=== PATIENT | male | born 1935 | race Caucasian/White ===

== ENCOUNTER → 2019-08-11 | Outpatient (CLI) | payer OTHER ==
[~2019-08-11] VITALS: Ht 180.3 cm; Wt 83.9 kg
[~2019-08-11] MED LIST: ADULT LOW DOSE81 MG PO; AMLODIPINE BESY10 MG PO; AMLODIPINE PO; AUGMENTIN 875875 MG PO; CARVEDILOL25 MG PO; FAMOTIDINE OR; HCTZ PO; HYDRALAZINE 5050 MG PO; HYDROCHLOROTH12.5 MG PO; HYDROCODON-ACE1 EAC7 PO; LASIX 40 MG TAB40 MG PO; LISINOPRIL20 MG PO; PEPCID20 MG PO; PHENERGAN 25 MG25 MG PO; REGLAN 10 MG TA10 MG PO; TIMOLOL MALEATE5 ML OPHTHALMIC; TRAVATAN 0.004%5 ML GTT; TRAVATAN Z2.5 ML OPHTHALMIC; VICODIN; ZOCOR20 MG PO
--- NOTE | 2019-08-11 17:40 | P ---
[facility] [place] [address] PROCEDURE REPORT Name: ANITHA,SINDHU Darion KEITH Room #: REG [facility]#: [id number] Admission: 08/11/19 Attend Phys: Juan Garrett MD Discharge: Date of : 37 Report #: [id number] THIS REPORT FOR: //name// CC: Juan Monaco MD OUTPATIENT COLONOSCOPY REPORT BRIEF HISTORY: The patient is an 84-year-old male with history of colon polyps. He had a flat polyp removed from the proximal colon, but on followup colonoscopy, we could not reach the proximal colon due to a large inguinal hernia, which required surgical repair. He had an episode of rectal bleeding this past May. PREOPERATIVE DIAGNOSES: Rectal bleeding, history of colon polyps. POSTOPERATIVE DIAGNOSES: 1. Flat polyp, ileocecal valve. 2. Sessile polyp, hepatic flexure. 3. Diminutive polyp at 20 cm. ESTIMATED BLOOD LOSS: 3 mL. PROCEDURE: Colonoscopy to cecum and terminal ileum with snare polypectomy, biopsy with saline and Sada ink injection. FINDINGS: Prior to propofol sedation, procedure of colonoscopy was reviewed with the patient as well potential risks and its complications. He indicates he understands and desires to proceed. DESCRIPTION OF PROCEDURE: With the patient in left lateral decubitus position, digital examination was completed, which revealed no abnormalities. Subsequently, the Olympus video colonoscope was introduced in the rectum, advanced under direct vision to the cecum. Done with minimal difficulty. The cecum was identified by the ileocecal valve and the appendiceal orifice. At that point, the scope was slowly withdrawn and careful circumferential views obtained. Upon slow withdrawal of the scope, there were some limitations of the prep due to some coating on mucosa with liquidy stool material. However, with extensive irrigation and suctioning, we were able to clean much of the suck. Within these limitations, the mucosa was within normal limits, normal vascular pattern, normal light reflex. As we withdrew the scope, an oblong flat polyp was seen on the ileocecal valve, it was about 10-12 mm in length. This was elevated with saline and removed in a piecemeal fashion with snare polypectomy and also cold biopsy forceps cleaned up some remaining fragments. Due to the fact it was so flat and the margins were difficult to see, we used argon plasma coagulation to treat all the edges of the polypectomy site as well as some areas [address] [address] PROCEDURE REPORT Name: SINDHU WELSH JR Room #: [facility] [id number] Admission: 08/11/19 Attend Phys: Juan Garrett MD Discharge: Date of : 37 Report #: [id number] in the base of the polypectomy site. There was good hemostasis. Then 2 Sada ink injections were placed laterally at the polypectomy site. I would also add that we did a saline-assisted snare polypectomy and biopsy. The polyp was elevated with saline. At that point, the scope was withdrawn and careful circumferential views obtained. At the hepatic flexure, a 4 mm sessile polyp was seen and removed with biopsy forceps. 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 At about 20 cm, a diminutive polyp was seen between 2 diverticula, was removed with biopsy forceps. The scope was further withdrawn, no additional neoplastic lesions were seen. Scope was withdrawn in the rectum, no abnormalities were seen. Upon retroflexion, no abnormalities were seen. Scope was withdrawn. The patient tolerated the procedure well. CONDITION OF THE PATIENT UPON DISCHARGE: Following procedure, the patient was drowsy, arousable and conversant. He will be discharged home when fully ambulatory. INSTRUCTIONS TO THE PATIENT AND FAMILY AT THE TIME OF DISCHARGE: We will follow up on the pathology. However, due to the findings of a flat polyp, which was removed in a piecemeal fashion, I will have him return in 2 years for high risk screening colonoscopy. <ELECTRONICALLY SIGNED> By: Juan Garrett MD 08/11/19 1740 1141 1711 Juan Garrett MD /nt
--- NOTE | 2019-08-14 16:07 | PATH ---
[facility] [address] [place] [address] PATHOLOGY RPT PROCEDURE Name: ANITHA,MARTELL A JR [facility] #: [id number] Admission: 08/11/19 Date of : 37 Discharge: Report #: [id number] Path Case #: [id number] [facility] Accession Number: [id number] . 01 Material submitted: . PART A: ileo-cecal valve - POLYP AT ILEO-CECAL VALVE PART B: hepatic flexure - POLYP AT HEPATIC FLEXURE PART C: colon - POLYP AT 20CM . 01 Clinical history: . Blood in stool, polyp. . 02 Diagnosis: A. Polyp, at ileocecal valve, endoscopic biopsy: - Inflamed tubular adenoma. - Negative for high-grade dysplasia. . B. Polyp, at hepatic flexure, endoscopic biopsy: - Tubular adenoma. - Negative for high-grade dysplasia. . C. Polyp, at 20 cm, endoscopic biopsy: - Tubular adenoma. - Negative for high-grade dysplasia. (IUV:pit 08/14/2019) QTP 08/14/2019 1350 Local . 02 Electronically signed: . Veronica Roper MD, Pathologist NPI- [id number] . 01 Gross description: . A. Received in formalin labeled "Martell Welsh, polyp at ileocecal valve" is a 2.2 x 0.7 x 0.2 cm aggregate of slater-brown mucosa fragments. The specimen is submitted in A1. . B. Received in formalin labeled "Martell Welsh, polyp at hepatic flexure" is a 0.5 x 0.3 x 0.1 cm aggregate of slater-brown mucosa fragments. The specimen is submitted in B1. . C. Received in formalin labeled "Martell Welsh, polyp at 20 cm" is a 0.6 x 0.4 x 0.2 cm aggregate of slater-brown mucosa fragments. The specimen is submitted in C1. ([facility]; 08/13/2019) [facility] 08/13/2019 1120 Local . 02 Pathologist provided ICD-10: D12.0, D12.3, D12.[address] [address] PATHOLOGY RPT PROCEDURE Name: MARTELL WELSH Room #: REG [facility].#: [id number] Admission: 08/11/19 Date of : 37 Discharge: Report #: [id number] Path Case #: [id number] . 02 CPT . 228253, [id number], [id number] Specimen Comment: A courtesy copy of this report has been sent to [phone] Specimen Comment: [phone] Specimen Comment: Report sent to and Performed at: [address] [facility], [place] [id number] MD Ti Galdamez MD Phone: [phone] Performed at: [address] [id number] MD Veronica Roper MD Phone: [phone]
== END | disposition home or self-care (01) ==
LOC: GI 08:46
DX: K62.5 Hemorrhage of anus and rectum (principal); D12.0 Benign neoplasm of cecum; D12.3 Benign neoplasm of transverse colon; D12.5 Benign neoplasm of sigmoid colon; I10 Essential (primary) hypertension; E78.5 Hyperlipidemia, unspecified; K21.9 Gastro-esophageal reflux disease without esophagitis; N40.0 Benign prostatic hyperplasia without lower urinary tract symptoms; M19.90 Unspecified osteoarthritis, unspecified site; Z86.010 Personal history of colon polyps; Z98.890 Other specified postprocedural states; Z79.899 Other long term (current) drug therapy; Z90.49 Acquired absence of other specified parts of digestive tract; Z85.828 Personal history of other malignant neoplasm of skin
CPT/HCPCS: 62110; 62900